=== PATIENT | female | born 1980 | race Caucasian/White ===

== ENCOUNTER → 2020-09-19 11:28 | Outpatient (BNVA) | payer SELFPAY | PROVIDERS: Family Provider Nurse Practitioner Family; PCP Nurse Practitioner Family; Visit Provider Registered Nurse | DX: N92.6 Irregular menstruation, unspecified (principal); N94.6 Dysmenorrhea, unspecified; F41.1 Generalized anxiety disorder; F43.0 Acute stress reaction | CPT/HCPCS: 80053; 82672; 84146; 84443; 85025 ==

== ENCOUNTER → 2021-04-19 09:48 | Outpatient (BNVA) | payer OTHER, SELFPAY | PROVIDERS: Family Provider Nurse Practitioner Family; PCP Nurse Practitioner Family; Visit Provider Nurse Practitioner Women's Health | DX: Z12.4 Encounter for screening for malignant neoplasm of cervix (principal); R10.2 Pelvic and perineal pain; K92.1 Melena; N94.6 Dysmenorrhea, unspecified | CPT/HCPCS: 87491; 87591; 87661; 88175 ==

== ENCOUNTER → 2024-09-23 15:39 | Outpatient (BNVA) | payer OTHER, SELFPAY | PROVIDERS: Family Provider Nurse Practitioner Family; PCP Nurse Practitioner Family; Visit Provider Registered Nurse | DX: F32.A Depression, unspecified (principal) | CPT/HCPCS: 80053; 82306; 82607; 84443; 85025 ==